=== PATIENT | female | born 1990 | race Caucasian/White ===

== ENCOUNTER 2016-09-21 10:52 | Emergency (ER) | payer MEDICAID | END 2016-09-21 12:13 | disposition home or self-care (01) | DX: B34.9 Viral infection, unspecified (principal); F17.200 Nicotine dependence, unspecified, uncomplicated ==

== ENCOUNTER 2019-07-15 16:32 | Emergency (ER) | payer BC, MEDICAID ==
[2019-07-15] MEDS ORDERED: IBUPROFEN 600 MG TABLET PO STA (17:02)
--- NOTE | 2019-07-15 17:02 | ED Physician Documentation ---
PD HPI HEENT - Stated complaint Stated Complaint: SORE THROAT, BODY ACHES, VOMITTING, FEVER - Chief complaint Chief Complaint: Heent - History obtained from History obtained from: Patient - History of Present Illness Timing - onset: How many days ago (4) Timing - duration: Days (4) Timing - details: Gradual onset Location: Nose Associated symptoms: Fever, Congestion, Rhinorrhea, Headache, Cough Recently seen: Not recently seen - Additional information Additional information: This is a 29-year-old presents with complaints that she developed some nasal congestion about 4 days ago and then by the following day she had throat and ear pain and last night got a fever 101 degrees. She is been coughing but just bringing up white phlegm. She took Robitussin and feels feverish now. She just had clear nasal mucus. No apetite. Denies any history of asthma. She is not . 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 Review of Systems Constitutional: reports: Myalgias, Fatigue. denies: Fever Ears: reports: Ear pain. denies: Loss of hearing Nose: reports: Rhinorrhea / runny nose, Congestion Throat: reports: Sore throat Respiratory: reports: Cough : denies: Now [facility] PAST MEDICAL HISTORY - Past Surgical History Past Surgical History: No - Present Medications Home Medications: Ambulatory Orders Medication Instructions Recorded Confirmed Ibuprofen [Motrin] 800 mg PO Q8H PRN #30 tablet 09/21/16 guaiFENesin/CODEINE [Robitussin AC] 10 ml PO Q6H PRN #200 ml 07/15/19 - Allergies Allergies/Adverse Reactions: Allergies Allergy/AdvReac Type Severity Reaction Status Date / Time No Known Drug Allergies Allergy Verified 08/03/14 08:22 - Social History Does the pt smoke?: Yes Smoking Status: Current every day smoker Does the pt drink ETOH?: No Does the pt have substance abuse?: No - Immunizations Immunizations are current?: Yes - POLST Patient has POLST: No PD ED PE NORMAL - Vitals Vital signs reviewed: Yes - General General: Alert and oriented X 3, No acute distress, Well developed/nourished - HEENT HEENT: Atraumatic, PERRL, EOMI, Ears normal (There are air bubbles noted behind the right eardrum.), Moist mucous membranes, Pharynx benign (Tonsillar pillars are erythematous but no exudate), Other (Boggy nasal mucosa with clear nasal drainage.) - Neck Neck: Supple, no meningeal sign, No adenopathy - Cardiac Cardiac: RRR, No murmur, Strong equal pulses - Respiratory Respiratory: No respiratory distress, Clear bilaterally - Derm Derm: Normal color, Warm and dry, No rash - Neuro Neuro: Alert and oriented X 3, No motor deficit, No sensory deficit, Normal speech - Psych Psych: Normal mood, Normal affect Results - Vitals Vitals: Vital Signs - 24 hr 07/15/19 07/15/19 16:43 18:20 Temperature 37.2 C 36.5 C Heart Rate 105 H 92 Respiratory 18 18 Rate Blood Pressure 137/96 H 118/83 H O2 Saturation 100 99 Oxygen O2 Source Room air - Labs Labs: Laboratory Tests 07/15/19 07/15/19 16:45 17:08 Influenza A (Rapid) Negative Influenza B (Rapid) Negative Group A Strep Rapid Negative PD MEDICAL DECISION MAKING - ED course Complexity details: reviewed results, d/w patient ED course: The strep screen and influenza screens were both negative. I discussed with the patient this is more consistent with a viral syndrome and I see no indication for antibiotics. She is given a note for 2 days off from work. Prescription for guaifenesin with codeine. She is encouraged to use ibuprofen 3 to 4 tablets every 8 hours [id number] with food. Drink lots of liquids. Follow-up with her primary care provider if she is not improving in another 5 to 7 days. Departure - Departure Disposition: 01 Home, Self Care Clinical Impression: Viral URI with cough Condition: Good Instructions: ED Viral Syndrome Follow-Up: [facility] [Provider Group] Prescriptions: guaiFENesin/CODEINE [Robitussin AC] 10 ml PO Q6H PRN #200 ml PRN Reason: Cough Comments: Home and rest. Drink lots of liquids. Take ibuprofen 3 to 4 tablets every 8 hours with food. Use the codeine cough syrup if needed for coughing. Follow-up with your primary care provider if not improving in 5 to 7 days. Forms: Activity restrictions Discharge Date/Time: 07/15/19 18:21
[2019-07-15 18:21] VITALS: BP 118/83
== END 2019-07-15 18:21 | disposition home or self-care (01) ==
LOC: ED 16:32
DX: J06.9 Acute upper respiratory infection, unspecified (principal); F17.200 Nicotine dependence, unspecified, uncomplicated
CPT/HCPCS: 87070; 87077; 87275; 87276; 87430; 99283; 99284; A9270